=== PATIENT | female | born 1950 | race Asian ===

== ENCOUNTER 2018-04-15 13:20 | Emergency (ER) | payer BC ==
[~2018-04-15] VITALS: Ht 149.9 cm; Wt 54.0 kg
[2018-04-15 13:24] VITALS: TEMP 97.9
[2018-04-15 16:20] VITALS: BP 163/87
== END 2018-04-15 16:20 | disposition home or self-care (01) ==
LOC: ED 13:20
DX: S09.90XA Unspecified injury of head, initial encounter (principal); S00.93XA Contusion of unspecified part of head, initial encounter; Y04.2XXA Assault by strike against or bumped into by another person, initial encounter
CPT/HCPCS: 99283

== ENCOUNTER 2022-10-02 08:29 | Outpatient (CLI) | payer OTHER | END 2022-10-02 20:53 | disposition home or self-care (01) | LOC: MAMMO 08:29 | PROVIDERS: ATTEND Internal Medicine | DX: Z12.31 Encounter for screening mammogram for malignant neoplasm of breast (principal); Z13.820 Encounter for screening for osteoporosis; N95.8 Other specified menopausal and perimenopausal disorders ==

== ENCOUNTER 2022-10-15 08:19 | Outpatient (CLI) | payer OTHER | END 2022-10-15 17:00 | disposition home or self-care (01) | LOC: US 08:19 | PROVIDERS: ATTEND Internal Medicine | DX: R74.8 Abnormal levels of other serum enzymes (principal) ==

== ENCOUNTER 2022-11-24 10:22 | Outpatient (CLI) | payer OTHER | END 2022-11-24 20:41 | disposition home or self-care (01) | LOC: NM 10:22 | PROVIDERS: ATTEND Internal Medicine | DX: K80.20 Calculus of gallbladder without cholecystitis without obstruction (principal) | CPT/HCPCS: A9537 ==